=== PATIENT | female | born 1975 | race Caucasian/White ===

== ENCOUNTER 2016-04-29 08:03 | Day surgery (SDC) | payer OTHER ==
[~2016-04-29] VITALS: Ht 162.6 cm; Wt 56.7 kg
[~2016-04-29 08:03] MED LIST: ACYCLOVIR15 GM TP; ALPRAZOLAM0.5 MG PO; ALPRAZOLAM1 MG PO; BENADRYL25 MG PO; BENADRYL50 MG/ML IV; BUSPAR10 MG PO; BUSPIRONE; BUTALBITAL-APA1 EAC1 PO; CHILD CHEW VIT1 EACH PO; CLONIDINE HCL0.1 MG PO; CYANOCOBAL1000 MCG/2 IM; CYMBALTA30 MG PO; CYMBALTA60 MG PO; CYTOMEL50 MCG PO; DESITIN113 GM TP; DILAUDID1 MG/ML GT; DILAUDID4 MG PO; DILAUDID8 MG PO; Diflucan PO; EFFEXOR XR150 MG PO; EFFEXOR75 MG PO; HUMALOG100 UNIT/1 SC; HUMULIN 50100 UNIT/1 SQ; HUMULIN R100 UNITS/ SC; HYDROCODON-ACE1 EAC7 PO; INSULIN PUMP SCCONT; INSULIN PUMP1 EACH MC; K-DUR20 MEQ PO; LASIX40 MG/4 ML IV; LEVOTHROID,S0.175 MG PO; LEVOTHROID50 MCG PO; LEVOTHYROXINE; LEVOTHYROXINE150 MCG PO; LEVOTHYROXINE200 MCG IV; LIOTHYRONINE S25 MCG PO; LIOTHYRONINE S50 MCG PO; MAG-OXIDE400 MG PO; MAGNESIUM PO; MAGNESIUM200 MG PO; MAXALT10 MG PO; MINIMED 530G1 EACH MC; Maxipime IV; Non-Formulary SC; PAXIL20 MG PO; PAXIL40 M1 GT; PAXIL40 M1 PO; PHENERGAN PO; PHENERGAN25 MG PR; PHENERGAN25 MG/ML IV; POTASSIUM; POTASSIUM PO; PROMETHAZINE HC25 M1 G-TUBE; PROMETHAZINE HC25 M1 PO; PYRIDOXINE HCL50 MG PO; ROCEPHIN1000 MG IM; SYNTHROID175 MCG IV; SYNTHROID75 MCG IV; SYNTHROID75 MCG PO; TOPAMAX100 MG PO; TPN; TPN ELECTROLYT100 ML IV; TPN IV; TRAZODONE HCL50 MG PO; VALPROIC A250 MG/5 M PO; VANCOMYCIN1 GM/250 M IV; VICODIN,LORT1 TABLET PO; VITAMIN B CO1 TABLET PO; VITAMIN D400 UNI1 PO; VITAMIN D5000 UNIT PO; Vicodin,Norco 5/325 PO; XANAX1 MG PO; Xanax GT; ZOFRAN4 MG/2 ML IV; ZOLOFT50 MG PO; [UNRECOGNIZED DRUG - OTHER] J-TUBE; [UNRECOGNIZED DRUG - SUPPLY] MC
[2016-04-29 09:19] LABS: POINT-OF-CARE METER ID UU13113696
[2016-04-29 12:59] LABS: POINT-OF-CARE METER ID UU13113819
== END 2016-04-29 14:45 | disposition home or self-care (01) ==
LOC: SDC 08:03 → OPR 08:03 → CATH 08:03 → SDC 08:32 → CATH 14:45
PROVIDERS: Surgery
PROC: 02HV33Z Insertion of Infusion Device into Superior Vena Cava, Percutaneous Approach (ICD-10-PCS; principal; 2016-04-29)
DX: T82.898A Other specified complication of vascular prosthetic devices, implants and grafts, initial encounter (principal); Y83.8 Other surgical procedures as the cause of abnormal reaction of the patient, or of later complication, without mention of misadventure at the time of the procedure; K31.84 Gastroparesis
CPT/HCPCS: 82948; 87070; C1752; C1769; C1894; J0690; J1170; J1644; J2250; J2550; J3010; S0020

== ENCOUNTER 2016-05-17 09:55 | Day surgery (SDC) | payer OTHER ==
[2016-05-17 12:23] LABS: POINT-OF-CARE METER ID UU13113819
== END 2016-05-17 14:35 | disposition home or self-care (01) ==
LOC: CATH 09:55
PROVIDERS: Surgery
DX: T82.898A Other specified complication of vascular prosthetic devices, implants and grafts, initial encounter (principal); Y83.8 Other surgical procedures as the cause of abnormal reaction of the patient, or of later complication, without mention of misadventure at the time of the procedure; E11.43 Type 2 diabetes mellitus with diabetic autonomic (poly)neuropathy
CPT/HCPCS: 82948; C1752; C1894; J0690; J1170; J1644; J2250; J2405; J3010; S0020